=== PATIENT | female | born 1935 | race Caucasian/White ===

== ENCOUNTER 2016-08-18 17:33 | Inpatient (IN) | payer MEDICARE, OTHER ==
[~2016-08-18] VITALS: Ht 162.6 cm; Wt 54.1 kg
[~2016-08-18 17:33] MED LIST: CALC1TAB23 PO; LISI30TA5 PO; MULT-1065 PO; OMPR20CCR PO; SIMV10TA4 PO
[2016-08-18 17:38] VITALS: BP 162/73; PULSE 103; RESP 16; O2SAT 94
--- NOTE | 2016-08-18 18:00 | ED.REPORT ---
HPI-General Illness Date of Service Aug 18, 2016 ED Provider: Salazar Magdaleno MD 81 year old female with a history of hypertension on lisinopril, hyperlipidemia and ovarian cancer with chemotherapy today who presents to the ED due to increased SOB today. Her symptoms are worse with exertion. Pt denies pain with deep inspiration but has had a few sharp pains today. Pt recently had her Clonidine increased to twice daily. No history of DVT/PE. Nursing Notes Stated Complaint: CHEST PAIN, SHORT OF BREATH Chief Complaint: Respiratory Distress Nursing Notes Reviewed: Yes Allergies: Coded Allergies: No Known Allergies (Verified Allergy, Unknown, 04/02/15) Scheduled Calcium Carbonate/Vitamin D3 (Os-Jelani 500+D3 Caplet) 500 Mg-600 Tablet 1 EACH PO DAILY Lisinopril (Lisinopril) 30 Mg Tablet 15 MG PO DAILY Multivits-Min/Iron/FA/Lutein (Centrum Silver Women Tablet) 8 Mg Iron-400 Mcg- 300 Mcg Tablet 1 EACH PO DAILY Omeprazole (Prilosec) 20 Mg Capcr 20 MG PO DAILY Simvastatin (Simvastatin) 10 Mg Tablet 10 MG PO HS General Time Seen by MD: 17:59 Chief Complaint Breathing problem Hx Obtained From: Patient, Daughter Arrived By: Walk-in Sudden in Onset?: No Onset Occurred: 13 - 16 hours ago Symptom Duration: Since onset Location: : Chest Severity: Current: No pain currently Associated with: Reports: Chest pain, Shortness of breath, Denies: Fever Relieved by: Rest Recent Healthcare: Recent doctor visit Past Medical History Past Medical History Ovarian Cancer (currently on chemotherapy) Orthostatic HTN Reports: Diabetes mellitus, GERD, Hyperlipidemia, Hypertension, Denies: Congestive heart failure, Coronary artery disease Denies: Renal insufficiency Past Surgical History Vocal cord repair facial cyst removed Total hysterectomy Family History non-contributory Smoking History Never Smoker Social History Lives in mobile home on daughter's property Drug Use: Denies drug use Other Social History: Good social support Ambulatory Status Independent Review of Systems Full Review of Systems Constitutional: Denies: Chills, Fever Respiratory: Reports: Shortness of breath, Denies: Non-productive cough Cardiovascular: Reports: Chest pain, Dyspnea on exertion GI: Denies: Abdominal pain, Diarrhea, Vomiting Complete sys rev & neg: except as marked. Physical Exam Vital Signs Vital Signs Date Time Temp Pulse Resp B/P Pulse Ox O2 Delivery O2 Flow Rate FiO2 08/18/16 21:31 36.3 103 20 139/61 96 Nasal Cannula 2 08/18/16 18:05 94 20 155/59 91 Room Air 08/18/16 17:38 36.2 103 16 162/73 94 Room Air Initial VS: Reviewed Head / Eyes: Atraumatic, Normocephalic, PERRL ENT: Conjunctiva normal, No scleral icterus Neck: Full range of motion Skin: Warm, Dry, No cyanosis Neurologic: Alert, Oriented Psychiatric: Mood/affect normal, Behavior normal, Normal thought content General/Constitutional: Awake, Alert, Cooperative Mouth: Positive: Mucous membranes dry (slightly) Respiratory / Chest: Breath sounds NL, Breath sounds = bilat, No respiratory distress, No rales, No rhonchi, No wheezing Port present R anterior chest wall with clean dressing in place. No erythema, swelling or tenderness. Cardiovascular: Regular rhythm, Heart sounds NL, No gallop, No murmurs, No rubs , Cap refill not delayed, Peripheral circulation NL Heart Rate / Rhythm: Positive: Tachycardia Abdomen: Soft, Non-tender, No distention Lower Extremity / Pelvis / MS: Non-tender, Neurologic intact, Vascular intact, No edema Compression stocking in place Interpretation & Diagnostics Lab Results Interpretation Result Diagram: 08/18/165 08/18/16 1815 Test 08/18/16 18:15 08/18/16 19:22 08/18/16 19:40 White Blood Count 32.6th/mm3 (3.8-10.1) Red Blood Count 2.28mil/mm3 (3.90-5.20) Hemoglobin 8.0g/dL (12.0-15.6) Hematocrit 25.6% (35.0-46.0) Mean Corpuscular Volume 112.3fL (81-100) Mean Corpuscular Hemoglobin 35.1pg (27.0-35.0) Mean Corpuscular Hemoglobin Concent 31.3% (32.0-37.0) Red Cell Distribution Width 20.3% (12.3-15.4) Platelet Count 250bil/L (150-400) Neutrophils (%) (Auto) 96.5% (40-74) Lymphocytes (%) (Auto) 0.7% (14-46) Monocytes (%) (Auto) 2.1% (4-12) Eosinophils (%) (Auto) 0% (0-5) Basophils (%) (Auto) 0.1% (0-3) Sodium Level 139mEq/L (134-144) Potassium Level 4.2mEq/L (3.5-5.2) Chloride Level 103mEq/L (97-108) Carbon Dioxide Level 23mmol/L (18-29) Blood Urea Nitrogen 24mg/dL (8-27) Creatinine 0.86mg/dL (0.57-1.00) Estimat Glomerular Filtration Rate 90mL/min (>59) Glucose Level 225mg/dL (60-99) Calcium Level 8.6mg/dL (8.5-10.1) Magnesium Level 1.6mg/dL (1.6-2.6) Total Bilirubin 0.3mg/dL (0.0-1.2) Aspartate Amino Transf (AST/SGOT) 18U/L (0-50) Alanine Aminotransferase (ALT/SGPT) 11U/L (0-32) Alkaline Phosphatase 181U/L (25-165) Troponin T < 0.010ug/L (0.0-0.011) Total Protein 6.7g/dL (6.4-8.4) Albumin 3.7g/dL (3.4-5.0) Hold Aguayo Top Tube Received (Received) Prothrombin Time 11.4sec (8.1-12.5) Prothromb Time International Ratio 1.06ratio Hold Blue Top Tube Received (Received) Hold Urine Received (Received) General Lab Results Interp 1: Labs reviewed ECG Interpretation ECG Interpretation: No ST segment elevation or T wave inversions. No change from previous ECG 04/02/15. Time: 18:06 Interpreted by: ED physician Normal ECG Interpretation: Normal rate (98), Normal sinus rhythm, Normal axis, Normal intervals X-Ray Chest Interpretation Chest Xray Interpretation: IMPRESSION: Bibasilar opacities compatible with pneumonia versus atelectasis. Small bilateral pleural fluid collections. Dictated by: Luisa Rodríguez MD, PhD on 08/18/2016 at 18:55 View: Portable, 1 view Interpretation / Wet Read by: Interpret - Radiologist CT Chest Interpretation IMPRESSION: 1. No pulmonary embolus. 2. Moderate-sized right and small left pleural effusions. 3. Bibasilar compressive atelectasis. 4. Atherosclerosis including the coronary vasculature. Dictated by: Luisa Rodríguez MD, PhD on 08/18/2016 at 20:20 Study type: CT pulm angiogram Interpretation / Wet Read by: Interpret - Radiologist Re-Eval/Medical Decision Med Decision/Clinical Course 81 year old female with a history of hypertension on lisinopril, hyperlipidemia and ovarian cancer with chemotherapy today who presents to the ED due to increased SOB today. Her symptoms are worse with exertion. Pt denies pain with deep inspiration but has had a few sharp pains today. Pt recently had her Clonidine increased to twice daily. No history of DVT/PE. Laboratory studies notable as below: Leukocytosis 32.6 increased from previous of 17 Hct 25.6 which is dec from prior in 30's Platelets 250 Coags nl Glucose 225 Alk phos 181 CMP otherwise unremarkable Troponin negative CT angiography of the chest obtained as below: 1. No pulmonary embolus. 2. Moderate-sized right and small left pleural effusions. 3. Bibasilar compressive atelectasis. 4. Atherosclerosis including the coronary vasculature. Chest x-ray IMPRESSION: Bibasilar opacities compatible with pneumonia versus atelectasis. Small bilateral pleural fluid collections. Here in the emergency department the patient remained borderline tachycardic with a heart rate in the low 100s. She initially had an oxygen saturation 90% on room air with any exertion she dropped her oxygen sats into the mid 80s. At this time we have ruled out pulmonary embolism as a cause of her presentation today. She does have significant leukocytosis though this is in the setting of receiving steroids with her chemotherapy. She is anemic though not to the point where I would initiate blood transfusion at this moment. She remains quite dyspneic and is requiring 3 L of oxygen by nasal cannula to maintain sats in the mid 90s. At this time initial workup for acute coronary syndrome is negative. Given her ongoing significant symptoms however I feel that she requires admission for further workup and management. Patient was discussed with the admitting hospitalist and transferred in stable condition. I suspect that her pleural effusion may be contributing to her symptoms. She may require further workup including thoracentesis and pleural fluid analysis to determine the etiology of her effusion. Time of Eval: 20:51 Re-Evaluation/Progress Note: Pt has been getting steroids before chemo with the last dose this morning. Time of Eval: 21:12 Re-Evaluation/Progress Note: After the oxygen was removed, the patients O2 sat decreased to the high 80's. Oxygen improved after NC was re-administered. Mildly tachycardic. Discussed plan for admission. Pt understands and agrees with plan. All questions addressed. Consultation : Referral / Consult Name: Kermit Fletcher MD Consulted With: Hospitalist Call Returned at: 21:57 Shift Supervisor Melting: Will see patient, Agrees with eval, Agrees with plan, Accepts admit Counseled Regarding: Diagnosis, Lab results, Need for admission Discharge & Departure Primary Impression: Pleural effusion Additional Impressions: Hypoxia History of ovarian cancer Anemia Anemia type: unspecified type Qualified Code: D64.9 - Anemia, unspecified Leukocytosis Leukocytosis type: unspecified Qualified Code: D72.829 - Elevated white blood cell count, unspecified Shortness of breath Fatigue Fatigue type: unspecified Qualified Code: R53.83 - Other fatigue Patient on antineoplastic chemotherapy regimen Disposition: ADMITTED TO HOSPITAL Discharge Condition All VS Reviewed: Yes Referrals: Lisa Vargas PA-C (PCP) Alison Attestation Portions of this note were transcribed by Alisa Lafleur. I, (Dr. Magdaleno) personally performed the history, physical exam and medical decision-making; I reviewed and confirmed the accuracy of the information in the transcribed note. Signed by: Alisa Lafluer. Alison, 08/18/2016, [id number] copies to: Lisa Vargas PA-C, Beck O MD Aug 18, 2016 18:00 Alisa Lafleur Aug 18, 2016 18:47
[2016-08-18 18:05] VITALS: BP 155/59; PULSE 94; RESP 20; O2SAT 91
[2016-08-18] MEDS ORDERED: 0.9% Sodium Chloride 1,000 ML IV ONE (18:47)
[2016-08-18 18:49] LABS: BASOPHILS % (AUTO) 0.1 % (0-3); EOSINOPHILS % (AUTO) 0 % (0-5); MONOCYTES % (AUTO) 2.1 % (4-12); Mean Corpuscular Hemoglobin 35.1 pg (27.0-35.0); Mean Corpuscular Volume 112.3 fL (81-100); NEUTROPHILS % (AUTO) 96.5 % (40-74); Platelet Count 250 bil/L (150-400)
--- NOTE | 2016-08-18 18:57 | DRSVH ---
PROCEDURE: X-RAY CHEST ONE VIEW, PORTABLE ([id number]) INDICATIONS: CHEST PAIN TECHNIQUE: One view of the chest was acquired. COMPARISON: [facility], CR, XR CHEST 1VW (PORTABLE), 04/02/2015, 17:37. FINDINGS: Surgical changes and devices: Right chest wall Port-A-Cath. Lungs and pleura: Small bilateral pleural fluid collections are noted. Bibasilar opacities are note d which could represent compressive atelectasis versus pneumonia. Mediastinum: Mediastinal contours appear normal. Heart size is normal. Bones and chest wall: No suspicious bony lesions. Overlying soft tissues appear unremarkable. IMPRESSION: Bibasilar opacities compatible with pneumonia versus atelectasis. Small bilateral pleur al fluid collections. Dictated by: Luisa Rodríguez MD, PhD on 08/18/2016 at 18:55 Approved by: Luisa Rodríguez MD, PhD on 08/18/2016 at 18:56
[2016-08-18 19:20] LABS: TROPONIN T < 0.010 ug/L (0.0-0.011)
[2016-08-18 19:24] LABS: Magnesium 1.6 mg/dL (1.6-2.6)
[2016-08-18 19:49] LABS: INR 1.06 ratio
--- NOTE | 2016-08-18 20:26 | DRSVH ---
PROCEDURE: CT ANGIO CHEST PULMONARY EMBOLISM ([id number]) INDICATIONS: concern for PE, SOB TECHNIQUE: After the administration of intravenous contrast, 2 mm thick sections acquired from the pulmonary api andriy to the posterior costophrenic angles. 3-dimensional maximum intensity projection (MIP) coronal a nd sagittal reformats were then acquired through the thorax. For radiation dose reduction, the follo wing was used: automated exposure control, adjustment of mA and/or kV according to patient size. COMPARISON: None. FINDINGS: Image quality: Excellent. Pulmonary arteries: Pulmonary arteries are normal in size, and demonstrate no intraluminal filling d efects to suggest central pulmonary embolism. Lungs and pleura: Moderate-sized right and small left pleural effusions are noted. Compressive atel ectasis noted in the lungs bilaterally. No pneumothorax. Central and peripheral airways are patent. Mediastinum: Heart size is normal, without pericardial effusion. Atherosclerotic ossifications noted in the aorta, great vessels and the coronary vasculature. No mediastinal or hilar adenopathy. Thor acic aorta is normal in caliber and enhancement. Esophagus is normal in caliber, without hiatal charles ia. Bones and chest wall: Left chest wall Port-A-Cath is noted. No suspicious bony lesions. Ribs and th oracic spine appear intact throughout. No axillary or supraclavicular adenopathy. Abdomen: Visualized upper abdominal solid organs appear normal in the early arterial phase of enhanc ement. IMPRESSION: 1. No pulmonary embolus. 2. Moderate-sized right and small left pleural effusions. 3. Bibasilar compressive atelectasis. 4. Atherosclerosis including the coronary vasculature. Dictated by: Luisa Rodríguez MD, PhD on 08/18/2016 at 20:20 Approved by: Luisa Rodríguez MD, PhD on 08/18/2016 at 20:24
[2016-08-18 21:31] VITALS: BP 139/61; PULSE 103; RESP 20; O2SAT 96
[2016-08-18] MEDS ORDERED: LISI40TA PO (22:29)
[2016-08-18] MEDS ORDERED: OMEP20CA11 PO (22:30)
[2016-08-18] MEDS ORDERED: ONDA-54 PO (22:32)
[2016-08-18] MEDS ORDERED: Alum-Mag Hydrox-Simeth 30 mL Suspension PO PRN ×2 (22:35→23:45)
[2016-08-18 22:37] VITALS: BP 135/55; PULSE 102; RESP 20; O2SAT 94
[2016-08-18 23:07] VITALS: BP 133/73; PULSE 102; RESP 20; O2SAT 94
[2016-08-18] MEDS ORDERED: 0.9% Sodium Chloride 250 ML IV SCH (23:10)
[2016-08-18 23:29] VITALS: PULSE 102
--- NOTE | 2016-08-18 23:37 | PCM.HPMED ---
Subjective Date of Service Aug 18, 2016 Primary Provider: Admitting Physician: Kermit Fletcher MD Primary Care Physician: Lisa Vargas PA-C Attending Physician: Kermit Fletcher MD Admit Status: From the Emergency Department Chief Complaint: Chest pain and shortness breath History of Present Illness: 81 year Y/O F with a history of diabetes type II diet controlled, hypertension on lisinopril, hyperlipidemia on simvastatin and ovarian cancer with chemotherapy today who presents to the ED due to increased SOB, and dyspnea today. Associated symptoms include very mild cough productive of scant amount of mucus. Her symptoms for today are worse with exertion. Patient reported a few sharp pains in chest with onset today. Patient is currently receiving chemotherapy for ovarian cancer. She is currently on week one of her seventh cycle of Gemzar and carboplatin. Patient's daughter Von was present during interview and is patient's power of corporate associate attorney. She states her mother had last chemotherapy done today. Prior to that her last cycle ended August 04 and at that time had hemoglobin of 7.4 and was not transfused. Patient denies fever, chills, sweats, abdominal pain, back pain, nausea, vomiting, sore throat. Pt recently had her Clonidine increased to twice daily. Vital signs in ED on presentation: Temperature 36.2, pulse 103, blood pressure 162/73, respirations 16, pulse 94 on room air. Repeat vitals temperature 36.3, pulse 102, blood pressure 135/55, respirations 20, pulse ox 94 on 2 L nasal cannula. Hemogram: White blood cell count 32.6, hemoglobin 8.0, hematocrit 25.6, MCV 112.3, platelet count 250, neutrophils 96.5. Chemistry panel: Sodium 139, potassium 4.2, chloride 103, CO2 23, BUN 24, creatinine 0.86, glucose 225, alkaline phosphatase 181, troponin 0.[address] chest was significant for moderate size right and small sized left pleural effusions, no pulmonary embolus was seen, right basilar compressive atelectasis, atherosclerosis including the coronary vasculature. Chest x-ray was significant for bibasilar opacities compatible with pneumonia versus atelectasis and small bilateral pleural fluid collections. EKG was normal sinus with a rate of 98, no ST segment elevation or T-wave inversions no changes from previous ECG. Review of Systems: A comprehensive review of systems was conducted and found to be negative except what was mentioned in history of present illness Allergies Coded Allergies: No Known Allergies (Verified Allergy, Unknown, 04/02/15) Home Medications Lisinopril (Lisinopril) 80 mg daily Omeprazole (Prilosec) 20 Mg Capcr 20 MG PO DAILY Simvastatin (Simvastatin) 10 Mg Tablet 10 MG PO HS PMH Ovarian Cancer (currently on chemotherapy) Orthostatic HTN Reports: Diabetes mellitus, GERD, Hyperlipidemia, Hypertension, Denies: Congestive heart failure, Coronary artery disease Denies: Renal insufficiency Surgical History Vocal cord repair facial cyst removed Total hysterectomy Family History Noncontributory Social History Hx Alcohol Use: No Hx Substance Use: No Smoking Status: Never Smoker Living Arrangement: with Family Exam Vital Signs Vital Sign - Last Date Time Temp Pulse Resp B/P Pulse Ox O2 Delivery O2 Flow Rate FiO2 08/18/16 21:31 36.3 103 20 139/61 96 Nasal Cannula 2 Exam General: Patient appears stated age, alert and oriented 3, no acute distress at time of this exam resting comfortably in bed him a speaking in full sentences HEENT: NC/AT, eyes PERRLA/EOMI, neck supple, nontender no adenopathy no JVD no masses, throat no erythema no exudates Lungs: left lung Owens with crackles greater than right Heart: Regular rate and rhythm with no murmur Abdomen: Soft nontender bowel sounds normal no masses nondistended Genitourinary: No suprapubic pain Extremities: Lower extremity mild 1+ pitting edema bilaterally to the level of mid calf Neurologic: Grossly neurologically intact cranial nerves II through XII Skin: Warm dry Lab and Diagnostics Result Diagram: 08/18/16181408/18/161814 X-Rays, CTs and MRIs Chest Xray Interpretation: IMPRESSION: Bibasilar opacities compatible with pneumonia versus atelectasis. Small bilateral pleural fluid collections. Dictated by: Luisa Rodríguez MD, PhD on 08/18/2016 at 18:55 View: Portable, 1 view Interpretation / Wet Read by: Interpret - Radiologist CT Chest Interpretation IMPRESSION: 1. No pulmonary embolus. 2. Moderate-sized right and small left pleural effusions. 3. Bibasilar compressive atelectasis. 4. Atherosclerosis including the coronary vasculature. Dictated by: Luisa Rodríguez MD, PhD on 08/18/2016 at 20:20 Study type: CT pulm angiogram Interpretation / Wet Read by: Interpret - Radiologist 12-lead ECG ECG Interpretation: No ST segment elevation or T wave inversions. No change from previous ECG 04/02/15. Time: 18:06 Interpreted by: ED physician Normal ECG Interpretation: Normal rate (98), Normal sinus rhythm, Normal axis, Normal intervals Assessment & Plan 81 year Y/O F with a history of hypertension on lisinopril, hyperlipidemia and ovarian cancer with chemotherapy today who presents to the ED due to increased SOB today. Her symptoms are worse with exertion. He was admitted for acute respiratory failure and bilateral pleural effusions, and anemia with hemoglobin of 8. # Chest pain, present on admission, active - ED notes says Pt recently had her Clonidine increased to twice daily. Over patient's daughter who is in room during physical exam states clonidine was stopped. Recommend further clarification in the morning. - If clonidine was indeed stopped rebound hypertension is a risk factor for this medication - Patient describes mild cough productive of phlegm, denies fever chills sweats abdominal pain - EKG: Normal rate (98), Normal sinus rhythm, Normal axis, Normal intervals. No ST segment elevation or T wave inversions. No change from previous ECG - Troponin ED was 0.010 # Acute respiratory failure, present on admission, active - Physical exam significant for left lung field crackles - Patient was descending on room air with movement into the 80s and 90s. - Differential diagnosis includes acute pulmonary pneumonitis given chemotherapy today with Gemzar, viral upper respiratory infection, bilateral pleural effusions, anemia with hemoglobin of 8 - Chest x-ray Bibasilar opacities compatible with pneumonia versus atelectasis. Small bilateral pleural fluid collections. - We will hold off on ABG now - Continue supplemental oxygen as needed and slowly titrate off. Keep Sats greater than 93%. - Pro calcitonin ordered and pending, influenza ordered and pending, MRSA swab ordered and pending, - DuoNeb therapy ordered every 4 when necessary # Bilateral pleural effusions right greater than left, present on admission, active - As seen on CT: Moderate-sized right and small left pleural effusions. No pulmonary embolus. Bibasilar compressive atelectasis. Atherosclerosis including the coronary vasculature. - Chest x-ray: Bibasilar opacities compatible with pneumonia versus atelectasis. Small bilateral pleural fluid collections. - We will defer to the day hospitalist and radiologist to decide on therapeutic thoracentesis in the morning. # Anemia, chronicity unknown, present on admission - She has recent history of anemia since starting chemotherapy. Last chemotherapy cycle ended August 04 hemoglobin was 7.4 and was not transfused at that time. Patient started new cycle of chemotherapy today. - Possible causes include chemotherapy-induced, anemia of chronic inflammation, iron deficiency anemia, blood loss - Hemoglobin is 8.0 - Transfusion threshold is 8.0 - Type and crossmatch 3 units, give 1 unit now - anemia panel ordered and pending (ordered and drawn prior to blood transfusion ) - Stool guaiac ordered and are pending # Leukocytosis, chronicity unknown, present on admission, active -Wbc's 36.2, neutrophils 96.5 -Differential diagnosis includes reactive/inflammatory, infectious, cancer related, -Pro calcitonin # Hyperglycemia in any known 2diabetic -Glucose 225 -Hemoglobin A1c ordered and pending -We will start low-dose correctional scale insulin Chronic problems #Ovarian Cancer (currently on chemotherapy) -She last had chemotherapy on day of admission 08/18/2016 -Oncologist is Dr. Shahid Villalobos MD ([facility]) [facility] -Patient is on her 7th cycle (week 1) of Gemzar and carboplatin. Patient receives Gemzar on week one and week 2 of each 3 week cycle, and carboplatin once every 3 week cycle. #Orthostatic hypotension, resumed stable #Diabetes mellitus -Recently had metformin stopped and now is diet-controlled #GERD, -On Prilosec OTC daily #Hyperlipidemia, -Simvastatin 10 mg daily #Hypertension, -Lisinopril 80 mg once daily as of 08/18/2016 Standard bowel medications Fever and pain control with Tylenol 650 mg Disposition: Admitted to in patient service with expected length of stay greater than 2 days, secondary to severity of presenting symptoms, treatment plan, complexity of clinical work up, and risk of adverse events. CODE STATUS: Full code PCP: Lisa PETERSON [facility] Oncologist: Dr. Shahid Villalobos MD ([facility]) [facility] [phone] DVT PE prophylaxis: Subcutaneous heparin DPOA: patient's daughter Von phone number [phone] Attending Statement The patient was seen and examined together with Dr. Em on 08/18 and I agree with the history, exam and plan as outlined in the note above. Zackary Em DO Aug 18, 2016 22:37 Kermit Fletcher MD Aug 18, 2016 23:37
[2016-08-18] MEDS ORDERED: Polyethylene Glycol (PEG) 17 Gm Powder PO PRN (23:45)
[2016-08-18] MEDS: Ondansetron 2 mg/mL 2 mL Inj IVPUSH PRN (23:46)
[2016-08-19] VITALS (9 sets, daily range): BP systolic 120–180; BP diastolic 56–76; PULSE 90–114; RESP 18–22; O2SAT 92–96
[2016-08-19 00:54] LABS: Magnesium 1.6 mg/dL (1.6-2.6); Unsaturated Iron Binding 188 ug/dL
--- NOTE | 2016-08-19 01:13 | NUR ---
admit note/med rec Pt is admitted to room 3025 from ED around 23:00 for pleural effusions and hypoxia; accompanied by her daughter, Von. Pt is A&Ox4, slightly weak with intermittent SOB with exertion. able to walk from gurney to bed with SBA. denies pain or discomfort. SpO2 @88%-89% on RA when resting; sats in mid 90s on 2L O2. open area noted on sacrum. pt and daughter stated that she acquired this 2 years ago. Mepilex on; pressure ulcer protocol activated. Pt and daughter oriented to room and plan of care; they verbalized understanding. pt watched orientation video. hx of falls; bed alarm on for safety. Pt's daughter, Von reviewed pt's med list. med rec completed and took all meds home.
[2016-08-19] MEDS: Heparin 5,000 Unit/mL Inj SUBQ SCH ×3 (02:59→17:12)
--- NOTE | 2016-08-19 06:07 | NUR ---
blood transfusion/hypoxia 1 unit of PRBCs given per MD's order. Pt tolerated well w/o adverse effects. RA trial done after blood transfusion; pt desated to 88% on RA while asleep; no respiratory distress noted. Pt is back on 1L O2, sats in mid 90s.
[2016-08-19 07:58] LABS: BASOPHILS % (AUTO) 0.1 % (0-3); EOSINOPHILS % (AUTO) 0.1 % (0-5); MONOCYTES % (AUTO) 6.9 % (4-12); Mean Corpuscular Hemoglobin 34.4 pg (27.0-35.0); Mean Corpuscular Volume 105.4 fL (81-100); Platelet Count 242 bil/L (150-400)
[2016-08-19] MEDS ORDERED: Lisinopril 40 Tablet PO SCH (08:30)
[2016-08-19] MEDS: Pantoprazole 20 mg ER24 Tablet PO SCH (09:09)
--- NOTE | 2016-08-19 10:04 | NUR ---
Social Work: Initial Assessment Data: Pt is an 81 y/o female admitted for pleural effusion, hypoxia. Pt's PCP is Dr Vargas, pt's insurance is [employer] with [employer]. EMR reviewed. No readmit score listed. SLEEVE PRESSER OPERATOR met with pt at bedside, role explained. Pt states that she lives alone in a trailer on her daughter's property where there are no stairs and she uses no DME. Pt states she does not drive, has no hx of HH or SNF, not [facility] or VA benefits, and is not a caregiver. Pt states her daughter is her DPOA and that she is bringing a copy of it in to the hospital today. Pt is currently on O2, is not on O2 at baseline. SLEEVE PRESSER OPERATOR will continue to follow for D/C planning needs. Assessment: Pt who is independent at baseline. Plan: Pt will likely d/c home when medically stable, possible HH. SLEEVE PRESSER OPERATOR will continue to follow for D/C planning needs. CELE Aguilar Addendum: 08/19/16 at 1018 by NELLY VIDALES Amended: Links added.
[2016-08-19] MEDS: Ondansetron 2 mg/mL 2 mL Inj IVPUSH PRN ×2 (11:28→19:39)
--- NOTE | 2016-08-19 11:39 | NUR ---
Concerns: Zofran 8mg administered as nausea prevention per patient and family request d/t chemo treatment 08/18. Patient states she takes Zofran PO 8mg q8hrs x 2days after chemo treatments to avoid symptoms of nausea.
--- NOTE | 2016-08-19 13:56 | NUR ---
Wound Care Pressure ulcer protocol received. Pt seen at bedside. 81 year Y/O F with a history of diabetes type II diet controlled, hypertension on lisinopril, hyperlipidemia on simvastatin and ovarian cancer with chemotherapy today who presents to the ED due to increased SOB, and dyspnea today. No pressure related skin issues noted.
[2016-08-19] MEDS ORDERED: Sodium Chloride LOK Flush 10 mL Syringe IVFLUSH PRN ×2 (14:00)
[2016-08-19] MEDS ORDERED: HepLOK Flush 100 unit/mL 5 mL Inj IVFLUSH PRN (14:00)
[2016-08-19] MEDS: 0.9% Sodium Chloride 250 ML IV SCH (17:12)
--- NOTE | 2016-08-19 17:24 | NUR ---
O2 Saturation/HR: O2 sats decreasing to 86-89% on 1L oxygen via NC. Telemetry ST 110s-120s per molding technician. Patient complained of "not feeling well", "I think that I'm just tired". O2 increased to 2L NC. MD notified. Patient resting w/eyes closed. On reassessment, O2 sats remaining 94-96%, HR 100-110s. Patient stating she is "feeling better".
--- NOTE | 2016-08-19 18:41 | PCM.PNMED ---
Subjective Date of Service Aug 19, 2016 Subjective denies any new issues/complaints. Exam Vital Signs Vital Sign - Last Date Time Temp Pulse Resp B/P Pulse Ox O2 Delivery O2 Flow Rate FiO2 08/19/16 16:40 37.4 109 22 159/63 92 Nasal Cannula 2.00 Intake and Output 08/18/16 08/18/16 08/19/16 Cumulative From/Thru 15:00 23:00 07:00 08/18/16 17:38 - 08/19/16 04:38 Intake Total 1000 ml 421 ml 1421 ml Balance 1000 ml 421 ml 1421 ml IV Total 1000 ml 21 ml 1021 ml Packed Cells 400 ml 400 ml General: Alert, Oriented X3, Cooperative, No Acute Distress Eyes: Scleral Anicteric Nose: Mucous Membr Moist/[place] Mouth: Mucous Membr Moist/[place] Neck: Supple Chest & Lungs: Chest Wall Normal, Other (mild rhonchi at right base) Cardiovascular: Regular Rate/Rhythm Abdomen: Tender (mild tender at supra-pubic area), Non-distended, Normoactive bowel tones, Soft Extremities: Edema (1+ edema in LE bilat) Neurological: Grossly Neurologically Intact, Normal Speech IVs and Medications Medications Reviewed: Medications were reviewed in detail Lab and Diagnostics Result Diagram: 08/19/16 0720 08/18/16 1815 X-Rays, CTs and MRIs Chest Xray Interpretation: IMPRESSION: Bibasilar opacities compatible with pneumonia versus atelectasis. Small bilateral pleural fluid collections. Dictated by: Luisa Rodríguez MD, PhD on 08/18/2016 at 18:55 View: Portable, 1 view Interpretation / Wet Read by: Interpret - Radiologist CT Chest Interpretation IMPRESSION: 1. No pulmonary embolus. 2. Moderate-sized right and small left pleural effusions. 3. Bibasilar compressive atelectasis. 4. Atherosclerosis including the coronary vasculature. Dictated by: Luisa Rodríguez MD, PhD on 08/18/2016 at 20:20 Study type: CT pulm angiogram Interpretation / Wet Read by: Interpret - Radiologist 12-lead ECG ECG Interpretation: No ST segment elevation or T wave inversions. No change from previous ECG 04/02/15. Time: 18:06 Interpreted by: ED physician Normal ECG Interpretation: Normal rate (98), Normal sinus rhythm, Normal axis, Normal intervals Assessment & Plan 81 year Y/O F with a history of hypertension on lisinopril, hyperlipidemia and ovarian cancer with chemotherapy who presents to the ED due to increased SOB. Her symptoms are worse with exertion. # Acute hypoxic respiratory failure, present on admission, ongoing - Likely at least partially 2ndry to underlying pleural effusion - IR consult for U/S guided right thoracentesis (both diagnostic and therapeutic ) - c/w supportive care # Question underlying pneumonia. poa - ID consulted. will f/u w/ recs # Chest pain, present on admission, Resolved. - Likely 2ndryt to pulmonary issues noted above - check echo - f/u # Macrocytic Anemia, chronicity unknown, present on admission - no sign of active bleeding - h/h stable - f/u # Leukocytosis, chronicity unknown, present on admission, active - ? underlying infection as noted - f/u w/ ID recs # Hyperglycemia with prior history of Type2 diabetic - Recently had metformin stopped and now is diet-controlled - Hemoglobin A1c ordered and pending - c/w ISS # Ovarian Cancer (currently on chemotherapy) - She last had chemotherapy on day of admission 08/18/2016 - Oncologist is Dr. Key (Ann Villalobos MD [facility] - Patient is on her 7th cycle (week 1) of Gemzar and carboplatin. Patient receives Gemzar on week one and week 2 of each 3 week cycle, and carboplatin once every 3 week cycle. # Chronic Orthostatic hypotension, presumed stable # GERD, - On Prilosec OTC daily # Hyperlipidemia, - Simvastatin 10 mg daily # Hypertension, - Lisinopril 80 mg once daily as of 08/18/2016 Dispo: 2-3 days Time spent 35 min Jong Zheng Aug 19, 2016 18:41
--- NOTE | 2016-08-19 19:35 | NUR ---
assumed care Received report from Jyothi EDDY at 1812 and assumed care of pt. Pt denies any pain or unmet needs at this time, reports feeling comfortable. O2 sats 93% on 2Lo2 via continuous pulsox. Report to barrett castro RN at 1900. Care continues. Addendum: 08/19/16 at 1935 by ANA NEVILLE RN Bed alarm for safety. Call light in reach.
[2016-08-19] MEDS: Ceftaroline Inj 600 MG in Dextrose 5% 250 ML IV SCH (20:30)
--- NOTE | 2016-08-19 21:02 | CONS ---
[address] [address] CONSULTATION REPORT PATIENT: CATALINO LARIOS : 1935 MR#: [id number] ADMIT: 08/18/2016 JOB ID: [id number] DATE OF SERVICE: 08/19/2016 INFECTIOUS DISEASE CONSULTATION: I thank Dr. Zheng for this consult. REASON FOR CONSULTATION: Bacteremia in a cancer patient. HISTORY OF THE PRESENT ILLNESS: The patient is a delightful 81-year-old woman who came [facility] [place] because she had been diagnosed with ovarian cancer and was coming to live with her daughter on [place]. The patient's other relevant medical history is type 2 diabetes, hypertension, and hyperlipidemia, but obviously the overwhelming issue is the ovarian cancer diagnosed about two and half years ago. She has been receiving chemo and tells me she has had about 25 doses of chemo spread out over the last two and half years. Her tumor marker, CA-125, was elevated at over 500 at the start of this cycle of this series of chemotherapeutic regimens, but it has now dropped about 60, so she is pleased with that. Unfortunately, the patient yesterday (August 18) developed increasing shortness of breath and some very mild productive cough. She also noted she had she had some atypical chest pain. She is currently in her 7th cycle of the chemo gemcitabine and carboplatin as directed by a doctor from [facility]. The last chemo in fact was just given on the , one day before yesterday's admission. Between cycles of chemotherapy she receives Neulasta, which of course makes her white count difficult to interpret. The patient reports that even though she was short of breath yesterday and had a bit of a dry cough which led her to be admitted, she had absolutely no fevers, chills, or sweats. She really did not have any pleuritic or substernal chest pain to speak of though, just a few fleeting momentary pains in the chest. There was no associated nausea or vomiting, though today on her second in-hospital day she has developed a bit of nausea and some vomiting which is very unusual for her. She had no sore throat, no diarrhea, and no urinary symptoms. Since the patient has been admitted there has been some discussion as to whether not she may have an infection and it is for that reason that I have been consulted. She denies any ill contacts or exposures and states that she herself does not believe she has an infection, but rather she is concerned about the fluid that has been accumulating in her pleural spaces. She notes that she lost quite a bit of weight during the course of this chemotherapy regimen, but she has gained some of that back recently. PAST MEDICAL HISTORY: 1. Ovarian cancer times 2-1/2 years, currently on chemotherapy, with dropping but still elevated tumor marker. 2. Hypertension. 3. Hyperlipidemia. 4. 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 SOCIAL HISTORY: The patient smoked briefly about 60 years ago, but not since. She is a nondrinker and currently lives in a mobile home which belongs to her but is sitting on her daughter's property on [place]. FAMILY HISTORY: Negative for tuberculosis in her parents, siblings, and children. REVIEW OF SYSTEMS: Was done in its entirety. The patient states that she is not having any headache or any visual problem. She has got no neurologic symptoms and notes that everybody thinks she is having a stroke because she has this left facial paralysis but it has been there since the after the epidermoid tumor was resected. She has no sore throat. No sneezing or nasal discharge. She has no stiff neck. She states she has a very occasional dry cough but basically is just short of breath and that has been her main problem over the past 48 hours. She has no pleuritic chest pain or substernal chest pain at this time. She has had some nausea and vomiting during the day because she was off her usual schedule of post-chemo antiemetics due to her hospital admission. No diarrhea and no abdominal pain. No flank pain. She denies hematuria, urgency, or frequency. No swelling in the extremities. No claudication. No skin rash. Remainder of the review of systems is negative. PHYSICAL EXAMINATION: Reveals an afebrile woman. She has been afebrile since her admission yesterday, just over 24 hours ago. Temp 37.4, pulse 109, respiratory rate 22, blood pressure 159/63. She is saturating well on 2 L and looks fairly comfortable, though which she is holding a bucket in case she vomits. The patient is completely alert, oriented x3, and a very lucid historian. She has no trauma to the head. No temporal wasting. Her eyes are without conjunctivitis or scleral icterus. Her nose is normal. There is no eschar. Her oral cavity has somewhat dry mucous membranes, but no thrush or pharyngitis is noted. The neck is supple. The patient has a left facial palsy or droop which is quite impressive which is old. Her lungs are notable for decreased breath sounds and some dullness at the bases. I do not hear rales or rhonchi. Cardiac tones regular rate and rhythm. There is a port in the right upper chest which is entirely benign appearing. The patient's abdomen is soft and nontender. It is rather thin. No hepatosplenomegaly or ascites is appreciated. There is no suprapubic fullness. She does not have a Kinsey catheter. Examination of the extremities shows her legs are quite well developed and there is no cyanosis, clubbing, edema, or cellulitis seen. Peripheral pulses are intact and the patient has good muscle strength throughout. No evidence of neuropathy. Labs include white blood count 21,000, hematocrit 27, platelet count 242,000. LDH is 245 and I am not sure why we checked it. Procalcitonin 0.15 on two measurements, the 8th and 9th basically. Magnesium is 1.6. LFTs normal but an alk phos is 181. Her micro studies include one of four bottles growing a gram-positive organism which appears to be Staph. These cultures were done yesterday in the ED. Influenza screen is negative. MRSA screen is pending. A multiplex PCR respiratory panel is negative. IMAGING: Notable for a CT angiogram which showed no pulmonary embolism. There is a moderate right and small left pleural effusion with bilateral compressive atelectasis. The chest x-ray reveals bilateral opacities which are atelectasis versus pneumonia. IMPRESSION: When I initially saw the patient and interviewed her before carefully examining the laboratories I was persuaded that she almost certainly did not have an infection, as her history and physical are not consistent with much going on in the way of infection. Her white count is high, I suspect strictly on the basis of the Neulasta she has been receiving. I just now noticed as I was reviewing her laboratories and preparing to dictate, however, that a single positive blood is positive for Staph. It is fairly likely that this is a coag-negative Staph and will be of no clinical significance, but I think in the interest of being conservative in this chemo-receiving elderly woman with ovarian cancer we should repeat blood cultures and place her on empiric antibiotics overnight. RECOMMENDATIONS: 1. Repeat blood cultures x2 sets will be done and I have asked the nurse to obtain one set through the port and one set through the skin. 2. A procalcitonin will be repeated tomorrow morning. 3. Following the drawing of the blood cultures, will place the patient on ceftaroline 600 mg q.12 h. 4. I will be by and reevaluate this delightful patient tomorrow.
[2016-08-20] VITALS (9 sets, daily range): BP systolic 156–180; BP diastolic 57–82; PULSE 86–103; RESP 18–19; O2SAT 95–98
--- NOTE | 2016-08-20 00:09 | NUR ---
BP Pt BP: 176/76 and HR: 109 and T: 37.1, paged night hospitalist with information.
[2016-08-20] MEDS: Heparin 5,000 Unit/mL Inj SUBQ SCH ×4 (00:30→23:26)
--- NOTE | 2016-08-20 04:30 | NUR ---
BP Dr returned with orders for lisinopril, given with good results. 0130 BP coming down. Will continue to monitor.
[2016-08-20 07:10] LABS: Vitamin B12 >1999 pg/mL (211-946)
[2016-08-20 08:31] LABS: BASOPHILS % (AUTO) 0.1 % (0-3); EOSINOPHILS % (AUTO) 0.1 % (0-5); MONOCYTES % (AUTO) 3.4 % (4-12); Mean Corpuscular Hemoglobin 34.4 pg (27.0-35.0); Mean Corpuscular Volume 106.3 fL (81-100); NEUTROPHILS % (AUTO) 94.7 % (40-74); Platelet Count 229 bil/L (150-400)
[2016-08-20] MEDS: Ceftaroline Inj 600 MG in Dextrose 5% 250 ML IV SCH (08:50)
[2016-08-20] MEDS: Pantoprazole 20 mg ER24 Tablet PO SCH (08:51)
[2016-08-20] MEDS: Ondansetron 2 mg/mL 2 mL Inj IVPUSH PRN ×2 (08:51→16:39)
--- NOTE | 2016-08-20 09:07 | NUR ---
Off Unit: Patient transported to [facility] via wheelchair @ approx 0905. prosthetic technician notified. O2 @ 3L NC. Family present at time of transport. Heparin SQ held this am.
[2016-08-20 10:53] LABS: TOTAL PROTEIN,PLEURAL FLUID 2.6 g/dL
[2016-08-20 11:08] LABS: BFWBC 170 /mm3; MONOCYTES,BODY FLUID 47 %
[2016-08-20 11:09] LABS: OTHER CELLS,BODY FLUID 0
--- NOTE | 2016-08-20 11:11 | DRSVH ---
PROCEDURE: X-RAY CHEST ONE VIEW ([id number]) INDICATIONS: POST THORACENTESIS TECHNIQUE: One view of the chest was acquired. COMPARISON: [facility], CT, CT ANGIO CHEST PE, 08/18/2016, 19:44. [facility] , CR, XR CHEST 1VW (PORTABLE), 08/18/2016, 18:21. [facility], CR, XR CHEST 1VW (PORTABLE) , 04/02/2015, 17:37. FINDINGS: Surgical changes and devices: Stable position of right chest port. Lungs and pleura: No pneumothorax post right thoracentesis with residual effusion. Small bilateral pl eural effusions. There is diffuse increased pulmonary interstitial marking. Mediastinum: Mediastinal contours appear normal. Heart size is normal. Bones and chest wall: No suspicious bony lesions. Overlying soft tissues appear unremarkable. IMPRESSION: No pneumothorax post thoracentesis. Dictated by: Booker Will RRStalin Interpreted: Kobe Chavez MD on 08/20/2016 at 11:10 Transcribed by: VICTOR MANUEL on 08/20/2016 at 11:11 Approved by: Kobe Chavez M.D. on 08/20/2016 at 15:15
[2016-08-20] MEDS ORDERED: hydrALAZINE 20 mg/mL Inj IV PRN (11:25)
--- NOTE | 2016-08-20 11:51 | DRSVH ---
PROCEDURE: US GUIDED THORACENTESIS BY REFERRING PHYSICIAN ([id number]) INDICATIONS: Right pleural efusion TECHNIQUE: The indications, alternatives, benefits, risks, and complications of the procedure were explained to the patient. Written informed consent was obtained and placed in the chart. The chest was examined sonographically, and an appropriate site was chosen for thoracentesis. The skin was prepared and alberto ped in the usual sterile fashion, and 1% lidocaine was infiltrated from the skin down through the ple ural surface. A 19-gauge catheter-covered needle was then introduced into the pleural space, the cat heter was advanced and the needle was withdrawn, and thereafter pleural fluid was aspirated. The cat heter was then removed and a dressing was applied. COMPARISON: None. FINDINGS: Access site: Right hemithorax. Needle: One-Step centesis catheter with introducer needle. Fluid volume and description: 970 cc of clear pleural fluid. Fluid sent for diagnostic testing: Fluid sent for cytology, multiple chemistry panels and therapeuti c drainage. Medications: 1% lidocaine for local anaesthesia. Complications: None; post-procedural chest radiograph is pending to assess for pneumothorax. IMPRESSION: Successful ultrasound-guided thoracentesis. Dictated by: Booker Will [facility] Interpreted: Kobe Chavez MD on 08/20/2016 at 11:50 Transcribed by: VICTOR MANUEL on 08/20/2016 at 11:50 Approved by: Kobe Chavez M.D. on 08/20/2016 at 15:24
--- NOTE | 2016-08-20 15:32 | PROG NOTE ---
[address] [address] PROGRESS NOTE PATIENT: CATALINO LARIOS : 1935 MR#: [id number] ADMIT: 08/18/2016 JOB ID: [id number] DATE: 08/20/2016 INFECTIOUS DISEASE FOLLOWUP NOTE: REASON FOR FOLLOWUP: Fevers in an ovarian cancer patient receiving chemotherapy. INTERVAL HISTORY: When I initially evaluated the patient as a new consult yesterday evening, she had not had any fevers but subsequent to that, she has had two low to medium grade fevers. She did not notice either of these and denies any subjective fevers or chills, but she was told by the nurses about the fever spikes. The patient denies any significant headache. Her nausea and vomiting have ended, and she does not have any significant pulmonary complaint, though she is slightly short of breath. She has no cough. Her port in her right upper chest is not bothering her. She has no dysuria or diarrhea. LABORATORIES: Include a white count, which is slowly settling to 17,000, 95% segs. Her creatinine is 0.65. Her LFT were essentially normal with a slightly elevated alk phos of 181. The pleural fluid was tapped today, and she had 170 white cells, about half monocytes and half polys. The LDH and total protein both suggested this was a transudate. The cultures include one of four blood cultures from admission which is growing a coag-negative staph, which is likely a contaminant. MRSA screen negative. Respiratory viral PCR panel negative. The followup blood cultures from the 10th are negative so far but they are just a few hours old. The Gram stain of the pleural fluid is negative. PHYSICAL EXAMINATION: The patient was afebrile until 2100 last night when she spiked to 38.4. She then defervesced for hours and then at 5 a.m. this morning was 38.3. The rest of the day she has been afebrile. Mental status is clear. Oral cavity negative. The port in the right chest is without inflammation. Lungs reasonably clear bilaterally with some decreased breath sounds at the right base. Cardiac tones: Regular rate and rhythm without murmur. Abdomen is really completely benign, soft and nontender, without organomegaly or ascites. The skin without rash. IMPRESSION: It is difficult to clarify what the source of the patient's fevers overnight may have been. Her white count is high but declining, and I think this is probably due to Neulasta that she is receiving, along with her chemotherapy. The single positive blood culture is likely a contaminant, and we now have repeats drawn through the port and the skin that are negative so far. The procalcitonin done this morning is 0.19, which is exactly in keeping with the prior values from earlier days and would argue against a significant bacterial process. Yesterday, I switched the patient to ceftaroline as coverage for what could be a methicillin-resistant Staphylococcus aureus process, as we initially just had the gram-positive organism in blood cultures. At this point, I think we can do away with the ceftaroline but I think we probably need a bit of broad-spectrum coverage in this cancer patient with fever, who is not neutropenic, until we have some clarity on the situation. RECOMMENDATIONS: 1. Will discontinue the ceftaroline, as it is no longer needed now that we know more about the gram-positive organism in her blood. 2. We will add Zosyn as broad-spectrum coverage for this ovarian cancer patient with ongoing chemo. 3. Will continue to closely observe the followup blood cultures. 4. If the patient should have additional coag-negative staph positive blood cultures, and especially if they come from the port, we may need to add back coverage for the possibility of a port infection. 5. I will be out of town for the next three days but will be back on August 24. I can be reached at any time about this or any other patient.
[2016-08-20] MEDS: 0.9% Sodium Chloride 250 ML IV SCH (16:38)
--- NOTE | 2016-08-20 16:55 | PCM.PNMED ---
Subjective Date of Service Aug 20, 2016 Subjective denies any new issues/complaints. says breathing feels much better after thoracentesis earlier this am Exam Vital Signs Vital Sign - Last Date Time Temp Pulse Resp B/P Pulse Ox O2 Delivery O2 Flow Rate FiO2 08/20/16 14:02 36.7 97 18 156/57 98 Nasal Cannula 1.00 Intake and Output 08/19/16 08/19/16 08/20/16 Cumulative From/Thru 15:00 23:00 07:00 08/18/16 17:38 - 08/20/16 06:13 Intake Total 0 ml 910 ml 379 ml 2710 ml Output Total 275 ml 1100 ml 1375 ml Balance -275 ml -190 ml 379 ml 1335 ml Intake Oral 0 ml 786 ml 786 ml IV Total 124 ml 379 ml 1524 ml Packed Cells 400 ml Output Urine Total 275 ml 1100 ml 1375 ml # Voids 5 5 # Bowel Movements 1 1 Exam General: Alert, Oriented X3, Cooperative, No Acute Distress Eyes: Scleral Anicteric Nose: Mucous Membr Moist/[place] Mouth: Mucous Membr Moist/[place] Neck: Supple Chest & Lungs: Chest Wall Normal, CTA bilat Cardiovascular: Regular Rate/Rhythm Abdomen: Tender (mild tender at supra-pubic area), Non-distended, Normoactive bowel tones, Soft Extremities: Edema (1+ edema in LE bilat) Neurological: Grossly Neurologically Intact, Normal Speech IVs and Medications Medications Reviewed: Medications were reviewed in detail Lab and Diagnostics Result Diagram: 08/20/1681408/20/16814 X-Rays, CTs and MRIs Chest Xray Interpretation: IMPRESSION: Bibasilar opacities compatible with pneumonia versus atelectasis. Small bilateral pleural fluid collections. Dictated by: Luisa Rodríguez MD, PhD on 08/18/2016 at 18:55 View: Portable, 1 view Interpretation / Wet Read by: Interpret - Radiologist CT Chest Interpretation IMPRESSION: 1. No pulmonary embolus. 2. Moderate-sized right and small left pleural effusions. 3. Bibasilar compressive atelectasis. 4. Atherosclerosis including the coronary vasculature. Dictated by: Luisa Rodríguez MD, PhD on 08/18/2016 at 20:20 Study type: CT pulm angiogram Interpretation / Wet Read by: Interpret - Radiologist 12-lead ECG ECG Interpretation: No ST segment elevation or T wave inversions. No change from previous ECG 04/02/15. Time: 18:06 Interpreted by: ED physician Normal ECG Interpretation: Normal rate (98), Normal sinus rhythm, Normal axis, Normal intervals Assessment & Plan 81 year Y/O F with a history of hypertension on lisinopril, hyperlipidemia and ovarian cancer with chemotherapy who presents to the ED due to increased SOB. Her symptoms are worse with exertion. # Acute hypoxic respiratory failure, present on admission, improving - Likely at least partially 2ndry to underlying pleural effusion - post Ultrasound guided right thoracentesis on 08/20/16 - f/u pleural fluid analysis including culture and path - c/w supportive care # Question underlying pneumonia. poa - appreciate ID consult. will f/u w/ recs - c/w Zosyn started 08/20 - f/u pending cultures # Acute fever, not poa. - plan as noted above # Chest pain, present on admission, Resolved. - Likely 2ndryt to pulmonary issues noted above - check echo - f/u # Macrocytic Anemia, chronicity unknown, present on admission - no sign of active bleeding - h/h stable - f/u # Leukocytosis, chronicity unknown, present on admission, active - ? underlying infection as noted - f/u w/ ID recs # Hyperglycemia with prior history of Type2 diabetic - Recently had metformin stopped and now is diet-controlled - Hemoglobin A1c 5.3 - c/w ISS # Ovarian Cancer (currently on chemotherapy) - She last had chemotherapy on day of admission 08/18/2016 - Oncologist is Dr. Shahid Villalobos MD ([place]) [place] - Patient is on her 7th cycle (week 1) of Gemzar and carboplatin. Patient receives Gemzar on week one and week 2 of each 3 week cycle, and carboplatin once every 3 week cycle. # Chronic Orthostatic hypotension, presumed stable # GERD, - On Prilosec OTC daily # Hyperlipidemia, - Simvastatin 10 mg daily # Hypertension, - Lisinopril 80 mg once daily as of 08/18/2016 Dispo: 2-3 days Time spent 35 in Jong Zheng Aug 20, 2016 16:55
[2016-08-20] MEDS: Piperacillin-Tazo 3.375 Gm Inj 3.375 GM in Dextrose 5% Minibag Plus 50 ML IV SCH ×2 (17:56→23:27)
--- NOTE | 2016-08-20 18:33 | NUR ---
Respiratory: O2 sats 97-99% on O2 @ 3L NC after returning from Thoracentesis. O2 reduced to 2L. After reassessment, O2 sats maintaining at 97-99%. O2 reduced to 1L. On reassessment, O2 sats 95-97%. Patient denies SOB at rest and with exertion. Encouraging deep breathing/cough exercised and encourage increase in activity as per patient comfort level.
[2016-08-21] VITALS (7 sets, daily range): BP systolic 145–171; BP diastolic 73–90; PULSE 86–95; RESP 16–20; O2SAT 92–97
[2016-08-21] MEDS: Pantoprazole 20 mg ER24 Tablet PO SCH (06:33)
--- NOTE | 2016-08-21 06:43 | NUR ---
Breathing Denies SOB @ rest on 1L NC all shift. States breathing significantly improved from yesterday prior to thoracentesis. Currently resting without any complaints.
[2016-08-21] MEDS: Lisinopril 40 Tablet PO SCH (07:55)
[2016-08-21] MEDS: Piperacillin-Tazo 3.375 Gm Inj 3.375 GM in Dextrose 5% Minibag Plus 50 ML IV SCH ×2 (07:56→16:43)
[2016-08-21] MEDS: Heparin 5,000 Unit/mL Inj SUBQ SCH ×2 (07:56→16:44)
--- NOTE | 2016-08-21 11:18 | DRSVH ---
[facility] [address] [place] [address] Echocardiogram Report Name: CATALINO LARIOS Study Date: 08/21/2016 Height: 64 in Hospital Exam Location: [facility] Weight: 125 lb Gender: Female BSA: 1.6 m2 : 1935 Age: 81 yrs BP: 171/82 mm Hg Reason For Study: Chest pain Ordering Physician: HOSPITALIST [facility] Performed By: Osmel Castaneda Referring Physician: JUAN COLE Interpretation Summary 1) Mild concentric left ventricular hypertrophy with normal size, wall motion, and systolic function (EF 55-60%). 2) Grade 2 diastolic dysfunction present, consistent with elevated left sided filling pressures. 3) Normal right ventricular size and function. 4) Mildly calcific mitral valve with mildly increased inflow gradient (mean gradient 6mmHg with HR in the 90s). 5) Moderate left-sided pleural effusion. 6) Trivial pericardial effusion noted. 7) Significant hypertension present during the study (BP 171/82). 8) No prior Echo available for comparison. Procedure: A two-dimensional transthoracic echocardiogram with color flow and Doppler was performed. The study quality was technically good. There is no prior echocardiogram noted for this patient. The patient was in normal sinus rhythm during the exam. Left Ventricle: The left ventricle is normal in size. There is mild concentric left ventricular hypertrophy. The ejection fraction is estimated to be 60-65%. Left ventricular wall motion is normal. Assessment of diastolic parameters suggests a pseudonormalization pattern, consistent with elevated filling pressures. Right Ventricle: The right ventricle is normal in size, thickness and function. Atria: The left atrium is severely dilated. Right atrial size is normal. The interatrial septum is intact with no evidence for an atrial septal defect. Mitral Valve: The mitral valve leaflets are mildly calcified. There is mild mitral annular calcification. The mitral valve mean gradient is 6 mmHg. There is mild mitral regurgitation. Aortic Valve: The aortic valve is normal in structure and function. There is no aortic valve stenosis. There is trace aortic regurgitation. Tricuspid Valve: The tricuspid valve is normal. The right ventricular systolic pressure is estimated at 35 mmHg assuming a right atrial pressure of 3 mm Hg. There is mild tricuspid regurgitation. Pulmonic Valve: The pulmonic valve leaflets are thin and pliable; valve motion is normal. There is a trace or physiologic amount of pulmonic regurgitation. Great Vessels: The aortic root is normal size. The ascending aorta is at the upper limits of normal in size. The pulmonary artery is normal size. The IVC is of normal diameter and collapses greater than 50% with a sniff. This suggests a low right atrial pressure of 3 mm Hg. Pericardium/ Pleura There is a trivial pericardial effusion noted. There is a moderate left-sided pleural effusion. MMode/2D Measurements & Calculations LVIDd: 3.4 cm RA long axis LVOT diam LVIDs: 2.4 cm LA A2 area: 24.7 cm FS: 30.3 % LA A4 area: 21.5 cm RA area Ao root diam EPSS: 0.73 cm LA length (vol): 4.8 cm IVSd: 1.1 cm LA vol: 93.9 ml : 12.0 cm asc Aorta LVPWd: 1.2 cm LA vol index RA vol: 27.2 mlDiam: 3.5 cm RA : 17.0 mm2 IVC diam: 1.3 cm LV mckeon. diameter/BSA LV sys. diameter/BSA RVD1 (basal) TAPSE: 1.9 cm (cm/m^2): 2.1 (cm/m^2): 1.5 Doppler Measurements & Calculations Ao V2 max MV E max gerardo MV E/A: 0.75 TR max gerardo : 158.4 cm/sec : 120.4 cm/sec Med Peak E' Gerardo : 284.8 cm/sec Ao max P.0 mmHg MV A max gerardo TR max PG Ao mean P.2 mmHg : 159.7 cm/sec E/E' med: 30.9 : 32.4 mmHg LVOT Max Gerardo Lat Peak E' Gerardo PA V2 max : 105.6 cm/sec MVA(VTI): 2.2 cm2 : 97.5 cm/sec E/E' lat: 25.4 PA mean PG MARLEN(I,D): 2.1 cm E/e' average : 2.1 mmHg sev ratio: 0.63 MV V2 mean Ao V2 mean LV V1 max PG PA V2 mean : 116.7 cm/sec : 121.6 cm/sec : 69.0 cm/sec MV mean P.9 mmHg Ao V2 VTI: 34.1 cmLV V1 VTI PA pr(Accel) MV V2 VTI: 31.4 cm : 21.5 cm : 29.2 mmHg MV dec time: 0.19 sec MARLEN(V,D): 2.2 cm2 MARLEN indexed to BSA (cm^2/m^2): 1.3 Reading Physician:11:17 AM
--- NOTE | 2016-08-21 13:32 | NUR ---
O2/AMBULATION P- Patient has recent Hx of SOB, was on 1L NC overnight. I- Patient on RA now 02 sats mid 90's, able to ambulate to bathroom independently. E- Continue to monitor, safety on toileting, monitor pending labs. Addendum: 08/21/16 at 1615 by KEITH RENDON RN AMBULATION Patient now has ambulated 150ft in nunez on RA, no SOB, o2 SAT 92%. LABS-WBC 17.5, Second set blood culture pending NEURO- LOC X3, decreased hearing CVS- BP 160'S/70 PLUM-See above note GI-Patient eat 1/2 lunch, denies nausea -Voiding bathroom SKIN- Sacrum, no skin breakdown noted PAIN-Patient denies IV-TKO Port PLAN-d/c home 1-2 days pending blood cultures + home health.
[2016-08-21] MEDS: 0.9% Sodium Chloride 250 ML IV SCH (16:43)
--- NOTE | 2016-08-21 16:52 | PCM.PNMED ---
Subjective Date of Service Aug 21, 2016 Subjective denies any new issues/complaints. says breathing feels much better after thoracentesis earlier this am Exam Vital Signs Vital Sign - Last Date Time Temp Pulse Resp B/P Pulse Ox O2 Delivery O2 Flow Rate FiO2 08/21/16 12:33 36.7 90 16 162/90 97 Nasal Cannula 1.00 Intake and Output 08/20/16 08/20/16 08/21/16 Cumulative From/Thru 15:00 23:00 07:00 08/18/16 17:38 - 08/21/16 06:57 Intake Total 175 ml 417 ml 221 ml 3523 ml Output Total 350 ml 350 ml 2075 ml Balance -175 ml 417 ml -129 ml 1448 ml Intake Oral 175 ml 0 ml 961 ml IV Total 417 ml 221 ml 2162 ml Packed Cells 400 ml Output Urine Total 325 ml 350 ml 2050 ml Emesis 25 ml 25 ml # Voids 5 # Bowel Movements 1 Exam General: Alert, Oriented X3, Cooperative, No Acute Distress Eyes: Scleral Anicteric Nose: Mucous Membr Moist/[place] Mouth: Mucous Membr Moist/[place] Neck: Supple Chest & Lungs: Chest Wall Normal, CTA bilat Cardiovascular: Regular Rate/Rhythm Abdomen: Tender (mild tender at supra-pubic area), Non-distended, Normoactive bowel tones, Soft Extremities: Edema (1+ edema in LE bilat) Neurological: Grossly Neurologically Intact, Normal Speech IVs and Medications Medications Reviewed: Medications were reviewed in detail Lab and Diagnostics Result Diagram: 08/20/1681408/20/1615 X-Rays, CTs and MRIs Chest Xray Interpretation: IMPRESSION: Bibasilar opacities compatible with pneumonia versus atelectasis. Small bilateral pleural fluid collections. Dictated by: Luisa Rodríguez MD, PhD on 08/18/2016 at 18:55 View: Portable, 1 view Interpretation / Wet Read by: Interpret - Radiologist CT Chest Interpretation IMPRESSION: 1. No pulmonary embolus. 2. Moderate-sized right and small left pleural effusions. 3. Bibasilar compressive atelectasis. 4. Atherosclerosis including the coronary vasculature. Dictated by: Luisa Rodríguez MD, PhD on 08/18/2016 at 20:20 Study type: CT pulm angiogram Interpretation / Wet Read by: Interpret - Radiologist 12-lead ECG ECG Interpretation: No ST segment elevation or T wave inversions. No change from previous ECG 04/02/15. Time: 18:06 Interpreted by: ED physician Normal ECG Interpretation: Normal rate (98), Normal sinus rhythm, Normal axis, Normal intervals Assessment & Plan 81 year Y/O F with a history of hypertension on lisinopril, hyperlipidemia and ovarian cancer with chemotherapy who presents to the ED due to increased SOB. Her symptoms are worse with exertion. # Acute hypoxic respiratory failure, present on admission, improving - Likely at least partially 2ndry to underlying pleural effusion - post Ultrasound guided right thoracentesis on 08/20/16 - pleural fluid analysis suggests transudative. culture negative so far Pleural protein/serum protein ratio 0.38 Pleural fluid LDH/serum LDH ratio 0.48 - Echo showing intact EF with evidence of Grade 2 diastolic dysfunction - f/u pending path - will give dose of Lasix - c/w supportive care # Question underlying pneumonia. poa - appreciate ID consult. will f/u w/ recs - c/w Zosyn started 08/20 - f/u pending cultures # Acute fever on 08/20/16, not poa. - plan as noted above # Chest pain, present on admission, Resolved. - Likely 2ndryt to pulmonary issues noted above - Echo as noted above - f/u # Macrocytic Anemia, chronicity unknown, present on admission - no sign of active bleeding - h/h stable - f/u # Leukocytosis, chronicity unknown, present on admission, active - ? underlying infection as noted - f/u w/ ID recs # Hyperglycemia with prior history of Type2 diabetic - Recently had metformin stopped and now is diet-controlled - Hemoglobin A1c 5.3 - c/w ISS # Ovarian Cancer (currently on chemotherapy) - She last had chemotherapy on day of admission 08/18/2016 - Oncologist is Dr. Key (Ann Villalobos MD [place] - Patient is on her 7th cycle (week 1) of Gemzar and carboplatin. Patient receives Gemzar on week one and week 2 of each 3 week cycle, and carboplatin once every 3 week cycle. # Chronic Orthostatic hypotension, presumed stable # GERD, - On Prilosec OTC daily # Hyperlipidemia, - Simvastatin 10 mg daily # Hypertension, - Lisinopril 80 mg once daily as of 08/18/2016 Dispo: 1-2 days Jong Zheng Aug 21, 2016 16:52
[2016-08-21] MEDS ORDERED: Furosemide 10 mg/mL 2 mL Inj IVPUSH ONE (16:55)
--- NOTE | 2016-08-21 17:21 | NUR ---
Social Work: Readiness for Discharge D: Pt discussed in am rounds. Pt is not medically stable for discharge at this time, but will likely be ready in 1-2 days. Pt has been ambulating 150 feet. has signed F2F order if pt would like home health. COLLECTION MANAGER met with pt and daughter at bedside to discuss home health option. HH Choice list provided. Preference is for [facility] however family would like the evening to discuss if this service is necessary for the pt. A: Pt who lives at home with family, ambulating 150 feet with RN during admission. P: Anticipate pt to discharge home in 1-2 days; COLLECTION MANAGER to follow up with pt prior to d/c if she would like referral sent to [facility]. F2F signed and in folder. CELE Ridley
[2016-08-22] VITALS (14 sets, daily range): BP systolic 80–165; BP diastolic 39–79; PULSE 85–142; RESP 10–29; O2SAT 91–98
[2016-08-22] MEDS: Heparin 5,000 Unit/mL Inj SUBQ SCH ×3 (00:02→16:18)
[2016-08-22] MEDS: Piperacillin-Tazo 3.375 Gm Inj 3.375 GM in Dextrose 5% Minibag Plus 50 ML IV SCH ×3 (00:03→16:18)
[2016-08-22 04:39] LABS: BASOPHILS % (AUTO) 0.3 % (0-3); EOSINOPHILS % (AUTO) 3.1 % (0-5); MONOCYTES % (AUTO) 1.9 % (4-12); Mean Corpuscular Hemoglobin 33.3 pg (27.0-35.0); Mean Corpuscular Volume 107.8 fL (81-100); NEUTROPHILS % (AUTO) 83.5 % (40-74); Platelet Count 200 bil/L (150-400)
--- NOTE | 2016-08-22 05:03 | NUR ---
HTN/Swallowing Pt had an elevated BP of 165/79. Denies chest pain, sob, feeling nauseated or abd discomfort. MD was notified and ordered amlodipine one time. BP was then normalize to 130's SBP. Blood draw done on pt's portacath and was sent to lab. Noticed pt is having difficulty with swallowing thin fluids. MD was notified and no further orders yet. Hourly rounding done, Call light within reach and pt has slept most of the night. Addendum: 08/22/16 at 0549 by SANG HA RN MD has ordered swallow eval. Will continue to follow up.
[2016-08-22] MEDS ORDERED: Diltiazem 5 mg/mL 5 mL Inj IVPUSH ONE (06:55)
--- NOTE | 2016-08-22 07:20 | NUR ---
New A-Fib 0630 Monitor delia called for new onset of A-fib running 140's-150's and asymptomatic. was notified and ordered Cardizem. Passed on to NUNU Conley for f/u.
[2016-08-22] MEDS ORDERED: 0.9% Sodium Chloride 500 ML ONE (07:29)
[2016-08-22] MEDS: Lisinopril 40 Tablet PO SCH ×2 (08:30→10:50)
[2016-08-22] MEDS ORDERED: 0.9% Sodium Chloride 500 ML IV ONE (08:55)
[2016-08-22] MEDS: Pantoprazole 20 mg ER24 Tablet PO SCH (09:03)
[2016-08-22] MEDS: 0.9% Sodium Chloride 250 ML IV SCH (09:11)
--- NOTE | 2016-08-22 11:00 | NUR ---
Evaluation completed. Please go to "Notes" then click on "Assessments and Notes" (bottom left corner of screen). Then select appropriate discipline tab on top of screen. Rec a modified barium swallow study to be completed while in the hospital.
--- NOTE | 2016-08-22 14:02 | NUR ---
HEART RATE/BP P- At 0630 orthopaedic technologist reports patient in A-fib HR 130-40. Patient denies chest pain is asymptomatic. I- MD made aware and order for 10mg IVP Diltazem ordered, given at 0720. E- Patient's heart rate 0735 is 80, but BP 72/49. MD made aware and 500ml bolus on NS ordered and given. Patient's BP within on hour 0930 was 140/70. At 0856 patient converted to SR 90's and has remained in SR. BP at one point up to 170/90 and 80 mg Lisinopril given that was withheld at 0800 due to low BP. Patient's last three BP's 140's/60's. Will continue to monitor via MP 30 and orthopaedic technologist.
--- NOTE | 2016-08-22 16:10 | PCM.PNMED ---
Subjective Date of Service Aug 22, 2016 Subjective denies any new issues/complaints. feeling a little anxious after told by nursing this am that she was having a-fib RVR although she says she was asymptomatic at the time. Exam Vital Signs Vital Sign - Last Date Time Temp Pulse Resp B/P Pulse Ox O2 Delivery O2 Flow Rate FiO2 08/22/16 13:06 36.7 92 20 148/65 96 Room Air 08/21/16 12:33 1.00 Intake and Output 08/21/16 08/21/16 08/22/16 Cumulative From/Thru 15:00 23:00 07:00 08/18/16 17:38 - 08/22/16 05:58 Intake Total 620 ml 367 ml 4510 ml Output Total 300 ml 300 ml 2675 ml Balance 320 ml 67 ml 1835 ml Intake Oral 620 ml 200 ml 1781 ml IV Total 167 ml 2329 ml Packed Cells 400 ml Output Urine Total 300 ml 300 ml 2650 ml Emesis 25 ml # Voids 5 # Bowel Movements 1 Exam was noted to be in A-fib w/ RVR this am. Received a dose fo IV Dilt by night team and this morning she was noted to be still tachycardic and hypotensive. BP and HR both improved after a bolus NS 250cc x 2. She is now back in Sinus rhythm. General: Alert, Oriented X3, Cooperative, No Acute Distress Eyes: Scleral Anicteric Nose: Mucous Membr Moist/[place] Mouth: Mucous Membr Moist/[place] Neck: Supple Chest & Lungs: Chest Wall Normal, CTA bilat Cardiovascular: Regular Rate/Rhythm Abdomen: Tender (mild tender at supra-pubic area), Non-distended, Normoactive bowel tones, Soft Extremities: Edema (1+ edema in LE bilat) Neurological: Grossly Neurologically Intact, Normal Speech IVs and Medications Medications Reviewed: Medications were reviewed in detail Lab and Diagnostics Result Diagram: 08/22/16 0840 08/22/16 0432 X-Rays, CTs and MRIs Chest Xray Interpretation: IMPRESSION: Bibasilar opacities compatible with pneumonia versus atelectasis. Small bilateral pleural fluid collections. Dictated by: Luisa Rodríguez MD, PhD on 08/18/2016 at 18:55 View: Portable, 1 view Interpretation / Wet Read by: Interpret - Radiologist CT Chest Interpretation IMPRESSION: 1. No pulmonary embolus. 2. Moderate-sized right and small left pleural effusions. 3. Bibasilar compressive atelectasis. 4. Atherosclerosis including the coronary vasculature. Dictated by: Luisa Rodríguez MD, PhD on 08/18/2016 at 20:20 Study type: CT pulm angiogram Interpretation / Wet Read by: Interpret - Radiologist 12-lead ECG ECG Interpretation: No ST segment elevation or T wave inversions. No change from previous ECG 04/02/15. Time: 18:06 Interpreted by: ED physician Normal ECG Interpretation: Normal rate (98), Normal sinus rhythm, Normal axis, Normal intervals Assessment & Plan 81 year Y/O F with a history of hypertension on lisinopril, hyperlipidemia and ovarian cancer with chemotherapy who presents to the ED due to increased SOB. Her symptoms are worse with exertion. # Acute hypoxic respiratory failure, present on admission, improving - Likely at least partially 2ndry to underlying pleural effusion - post Ultrasound guided right thoracentesis on 08/20/16 - pleural fluid analysis suggests transudative. culture negative so far Pleural protein/serum protein ratio 0.38 Pleural fluid LDH/serum LDH ratio 0.48 - Echo showing intact EF with evidence of Grade 2 diastolic dysfunction - f/u pending path - c/w supportive care # Acute Afib with RVR this am now back to sinus rhythm. - ? if afib/RVR 2ndry to dehydration after Lasix on 08/21 vs other etiology - continue to monitor on Tele one more night # Question underlying pneumonia. poa - appreciate ID consult. will f/u w/ recs - c/w Zosyn started 08/20 - f/u pending cultures # one positive blood culture from admission with Coag Neg staph. ? if contamination. - c/w Abx as noted - f/u repeat cultures # Acute fever on 08/20/16, not poa. - plan as noted above # Chest pain, present on admission, Resolved. - Likely 2ndryt to pulmonary issues noted above - Echo as noted above - f/u # Macrocytic Anemia, chronicity unknown, present on admission - no sign of active bleeding - h/h stable - f/u # Leukocytosis, chronicity unknown, present on admission. Resolved. - ? underlying infection as noted - f/u w/ ID recs # Hyperglycemia with prior history of Type2 diabetic - Recently had metformin stopped and now is diet-controlled - Hemoglobin A1c 5.3 - c/w ISS # Ovarian Cancer (currently on chemotherapy) - She last had chemotherapy on day of admission 08/18/2016 - Oncologist is Dr. Shahid Villalobos MD ([place] - Patient is on her 7th cycle (week 1) of Gemzar and carboplatin. Patient receives Gemzar on week one and week 2 of each 3 week cycle, and carboplatin once every 3 week cycle. # Chronic Orthostatic hypotension, presumed stable # GERD, - On Prilosec OTC daily # Hyperlipidemia, - Simvastatin 10 mg daily # Hypertension, - Lisinopril 80 mg once daily as of 08/18/2016 Dispo: likely home tomorrow Time spent 40 min Jong Zheng Aug 22, 2016 16:10
[2016-08-23 00:47] VITALS: BP 180/72; PULSE 86; RESP 16; O2SAT 96
[2016-08-23] MEDS: Piperacillin-Tazo 3.375 Gm Inj 3.375 GM in Dextrose 5% Minibag Plus 50 ML IV SCH ×2 (00:49→08:13)
[2016-08-23] MEDS: Heparin 5,000 Unit/mL Inj SUBQ SCH ×2 (00:50→08:13)
[2016-08-23 04:51] VITALS: BP 176/91; PULSE 92; RESP 18; O2SAT 95
[2016-08-23 05:05] LABS: Mean Corpuscular Hemoglobin 33.6 pg (27.0-35.0); Mean Corpuscular Volume 107.7 fL (81-100)
[2016-08-23 05:39] LABS: Magnesium 1.8 mg/dL (1.6-2.6)
[2016-08-23] MEDS: Pantoprazole 20 mg ER24 Tablet PO SCH (06:36)
--- NOTE | 2016-08-23 06:41 | NUR ---
HTN Pt had a couple of episodes of elevated bp. 170's SBP and going down on most frequent 140's sbp. Pt denies chest pain, sob, n/v or abd discomfort. Pt has been afebrile overnight. HS meds administered as scheduled. Hourly rounding done, pt uses call light appropriately and within reach. Pt has slept most of the night.
[2016-08-23] MEDS: Lisinopril 40 Tablet PO SCH (08:12)
[2016-08-23 08:18] VITALS: BP 185/76; PULSE 94; RESP 20; O2SAT 97
[2016-08-23 11:50] VITALS: BP 164/85; PULSE 95; RESP 18; O2SAT 98
--- NOTE | 2016-08-23 12:17 | PCM.DIMED ---
Discharge Instructions Date of Service Aug 23, 2016 Dates of Hospitalization Aug 18, 2016 at 22:11 Discharge Diagnosis Discharge Diagnosis # Acute hypoxic respiratory failure, present on admission, resolved - Likely at least partially due to underlying pleural effusion - post Ultrasound guided right thoracentesis on 08/20/16 - pleural fluid analysis suggests transudative. culture negative so far. cytology pending and needs to be followed up as outpatient Pleural protein/serum protein ratio 0.38 Pleural fluid LDH/serum LDH ratio 0.48 # Grade 2 diastolic dysfunction based on echocardiogram # Acute atrial fibrillation with rapid ventricular response now back to sinus rhythm. # Acute leukocytosis and isolated fever (08/20/16) probably due to Neulasta and recent chemotherapy. Resolved # Single positive blood culture (Coag Negative Staph) is likely a contaminant # Chest pain, present on admission, Resolved. - Likely due to pulmonary issues noted above # Macrocytic Anemia, chronicity unknown, present on admission. stable # Hyperglycemia with prior history of Type2 diabetes - Hemoglobin A1c 5.3 # Ovarian Cancer (currently on chemotherapy) # Chronic Orthostatic hypotension, stable # GERD # Hyperlipidemia, # Hypertension Medication Instructions Resume home medications as before Diet Low fat, Low Sodium, Heart Healthy, Diabetic Activity No restrictions Call your provider Fever or Chills, Shortness of breath, Bleeding, Chest pain, Excessive diarrhea Patient Instructions Seek immediate medical attention if any new or worsening signs or symptoms occur. Follow-up plan 1. Followup with primary care provider in 3-7 days 2. Followup with your oncologist on Tuesday as previously scheduled. Follow-up Provider: Lisa Vargas PA-C, [place] Aug 23, 2016 12:17
--- NOTE | 2016-08-23 12:27 | NUR ---
Social Work Discharge: SW acknowledged order for discharge. SW met with patient at bedside to discuss discharge plan. Patient resides home with family and daughter Von, . Plan is home with family and HHC services via [facility]. SW provided access to [facility] and faxed face to face to [phone]. SW contacted and left voice mail message for patient daughter regarding above discharge arrangements. Patient states daughter to provide transport home upon discharge. SW to follow. PLAN: Home with family support and HHC via [facility]. Access provided and face to face given. Transport via daughter at discharge. No anticipated discharge needs identified at this time. SW to follow. Jeanne OAKLEY
[2016-08-23 12:51] VITALS: PULSE 97
[2016-08-23] MEDS: 0.9% Sodium Chloride 250 ML IV SCH (13:57)
--- NOTE | 2016-08-23 14:29 | NUR ---
Discharge Reviewed d/c instructions including care notes with pt and daughter in room, pt signed and given originals, copies to chart. IV d/c intact, tele removed. VS stable at time of d/c. All belongings packed by pt and daughter and will be taken with them. Daughter to go to medical records then will come back to room to retrieve pt and drive her home. Care continues Addendum: 08/23/16 at 1500 by JHONNY BECK RN pt taken off unit via WC with all belongings, daughter to drive home
--- NOTE | 2016-08-23 15:12 | PCM.DC.MED ---
Discharge Summary Date of Service Aug 23, 2016 Dates of Hospitalization Date of Hospital Admission Aug 18, 2016 at 22:11 Date of Discharge: Aug 23, 2016 Providers: Admitting Physician: Kermit Fletcher MD Primary Care Physician: Lisa Vargas PA-C Attending Physician: Kermit Fletcher MD Diagnosis at Time of Discharge Diagnosis at Time of Discharge # Acute hypoxic respiratory failure, present on admission, resolved - Likely at least partially due to underlying pleural effusion - post Ultrasound guided right thoracentesis on 08/20/16 - pleural fluid analysis suggests transudative. culture negative so far. cytology pending and needs to be followed up as outpatient Pleural protein/serum protein ratio 0.38 Pleural fluid LDH/serum LDH ratio 0.48 # Grade 2 diastolic dysfunction based on echocardiogram # Acute atrial fibrillation with rapid ventricular response now back to sinus rhythm. # Acute leukocytosis and isolated fever (08/20/16) probably due to Neulasta and recent chemotherapy. Resolved # Single positive blood culture (Coag Negative Staph) is likely a contaminant # Chest pain, present on admission, Resolved. - Likely due to pulmonary issues noted above # Macrocytic Anemia, chronicity unknown, present on admission. stable # Hyperglycemia with prior history of Type2 diabetes - Hemoglobin A1c 5.3 # Ovarian Cancer (currently on chemotherapy) # Chronic Orthostatic hypotension, stable # GERD # Hyperlipidemia, # Hypertension Consultations 1. ID Procedures XRay, CTs & MRIs Date of Service: 08/18/16 1748 PROCEDURE: X-RAY CHEST ONE VIEW, PORTABLE ([id number]) IMPRESSION: Bibasilar opacities compatible with pneumonia versus atelectasis. Small bilateral pleural fluid collections. Dictated by: Luisa Rodríguez MD, PhD on 08/18/2016 at 18:55 Approved by: Luisa Rodríguez MD, PhD on 08/18/2016 at 18:56 Date of Service: 08/18/16 4777 PROCEDURE: CT ANGIO CHEST PULMONARY EMBOLISM ([id number]) IMPRESSION: 1. No pulmonary embolus. 2. Moderate-sized right and small left pleural effusions. 3. Bibasilar compressive atelectasis. 4. Atherosclerosis including the coronary vasculature. Dictated by: Luisa Rodríguez MD, PhD on 08/18/2016 at 20:20 Approved by: Luisa Rodríguez MD, PhD on 08/18/2016 at 20:24 ECG 12 Lead ECG Interpretation: No ST segment elevation or T wave inversions. No change from previous ECG 04/02/15. Time: 18:06 Interpreted by: ED physician Normal ECG Interpretation: Normal rate (98), Normal sinus rhythm, Normal axis, Normal intervals Cardiac Echo Impression Date of Service: 08/21/16 1653 Echocardiogram Report Interpretation Summary 1) Mild concentric left ventricular hypertrophy with normal size, wall motion, and systolic function (EF 55-60%). 2) Grade 2 diastolic dysfunction present, consistent with elevated left sided filling pressures. 3) Normal right ventricular size and function. 4) Mildly calcific mitral valve with mildly increased inflow gradient (mean gradient 6mmHg with HR in the 90s). 5) Moderate left-sided pleural effusion. 6) Trivial pericardial effusion noted. 7) Significant hypertension present during the study (BP 171/82). 8) No prior Echo available for comparison. Reading Physician:11:17 AM Invasive Procedures Date of Service: 08/20/16 0800 PROCEDURE: US GUIDED THORACENTESIS BY REFERRING PHYSICIAN ([id number]) FINDINGS: Access site: Right hemithorax. Needle: One-Step centesis catheter with introducer needle. Fluid volume and description: 970 cc of clear pleural fluid. Fluid sent for diagnostic testing: Fluid sent for cytology, multiple chemistry panels and therapeutic drainage. Medications: 1% lidocaine for local anaesthesia. Complications: None; post-procedural chest radiograph is pending to assess for pneumothorax. IMPRESSION: Successful ultrasound-guided thoracentesis. Dictated by: Booker Will RRA Interpreted: Kobe Chavez MD on 08/20/2016 at 11:50 Transcribed by: VICTOR MANUEL on 08/20/2016 at 11:50 Approved by: Kobe Chavez M.D. on 08/20/2016 at 15:24 Brief History 81 year Y/O F with a history of hypertension on lisinopril, hyperlipidemia and ovarian cancer with chemotherapy who presents to the ED due to increased SOB. Her symptoms are worse with exertion. Hospital Course # Acute hypoxic respiratory failure, present on admission, Resolved - Likely at least partially 2ndry to underlying pleural effusion - post Ultrasound guided right thoracentesis on 08/20/16 - pleural fluid analysis suggests transudative. 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 if afib/RVR 2ndry to dehydration after Lasix on 08/21 vs other etiology - initially became hypotensive with one dose of IV Dilt but the BP and HR both improved after 500cc NS bolus and converted back to sinus rhythm # Question underlying pneumonia. poa - treated with Zosyn 08/20 - 08/23 - clinically no sign of pneumonia and so Abx stopped on day of d/c # one positive blood culture from admission with Coag Neg staph likely contamination. # Acute isolated episode of fever on 08/20/16, not poa. - unclear exact source but further cultures negative and negative procalcitonin. # Chest pain, present on admission, Resolved. - Likely 2ndryt to pulmonary issues noted above - Echo as noted above # Macrocytic Anemia, chronicity unknown, present on admission - no sign of active bleeding - h/h stable # Leukocytosis, chronicity unknown, present on admission. Resolved. # Hyperglycemia with prior history of Type2 diabetic - Recently had metformin stopped and now is diet-controlled - Hemoglobin A1c 5.3 # Ovarian Cancer (currently on chemotherapy) - She last had chemotherapy on day of admission 08/18/2016 - Oncologist is Dr. Shahid Villalobos MD ([place]) [facility], [place], operated by [facility] - Patient is on her 7th cycle (week 1) of Gemzar and carboplatin. Patient receives Gemzar on week one and week 2 of each 3 week cycle, and carboplatin once every 3 week cycle. # Chronic Orthostatic hypotension, presumed stable # GERD, - On Prilosec OTC daily # Hyperlipidemia, - Simvastatin 10 mg daily # Hypertension, - Lisinopril 80 mg once daily by day of d/c lungs CTA bilat. patient speaking in full sentences without difficulty Exam Vital Signs (Last) Date Time Temp Pulse Resp B/P Pulse Ox O2 Delivery O2 Flow Rate FiO2 08/23/16 12:51 97 08/23/16 11:50 36.8 18 164/85 98 Room Air 08/21/16 12:33 1.00 Test 08/18/16 18:15 08/18/16 19:22 08/18/16 19:40 08/18/16 23:30 Total Bilirubin 0.3mg/dL (0.0-1.2) Aspartate Amino Transf (AST/SGOT) 18U/L (0-50) Alanine Aminotransferase (ALT/SGPT) 11U/L (0-32) Alkaline Phosphatase 181U/L (25-165) Troponin T < 0.010ug/L (0.0-0.011) Total Protein 6.7g/dL (6.4-8.4) Hold [place] Top Tube Received (Received) Prothrombin Time 11.4sec (8.1-12.5) Prothromb Time International Ratio 1.06ratio Hold Blue Top Tube Received (Received) Hold Urine Received (Received) Reticulocyte Count,Calculated 6.3% (0.6-2.6) Hemoglobin A1c 5.3% (4.8-5.6) Iron Level 61ug/dL (35-150) Total Iron Binding Capacity 249ug/dL (250-450) Percent Iron Saturation 24%sat (15-50) Unsaturated Iron Binding 188ug/dL Ferritin 1445ng/mL (13-150) Albumin 3.4g/dL (3.4-5.0) Vitamin B12 Level >1999pg/mL (211-946) Folate 8.6ng/mL (>3.0) Test 08/19/16 05:55 08/19/16 15:10 08/20/16 09:30 08/21/16 06:00 Lactate Dehydrogenase 245U/L (100-190) Protein C Antigen 72% (60-150) Body Fluid Source Pleural fluid Body Fluid Color Yellow (Clear) Body Fluid Appearance Clear Body Fluid WBC 170/mm3 Body Fluid RBC 140/mm3 Body Fluid Polynuclear WBCs 53% Body Fluid Lymphocytes 0% Body Fluid Monocytes 47% Body Fluid Eosinophils 0% Body Fluid Basophils 0% Body Fluid Lactate Dehydrogenase 119U/L Body Fluid Comment Pleural Fluid Total Protein 2.6g/dL Pleural Fluid Glucose 123mg/dL Procalcitonin 0.15ng/mL (0.00-0.08) Test 08/22/16 04:32 08/23/16 04:30 Neutrophils (%) (Auto) 83.5% (40-74) Lymphocytes (%) (Auto) 10.9% (14-46) Monocytes (%) (Auto) 1.9% (4-12) Eosinophils (%) (Auto) 3.1% (0-5) Basophils (%) (Auto) 0.3% (0-3) Prealbumin 13mg/dL (20-40) White Blood Count 5.2th/mm3 (3.8-10.1) Red Blood Count 2.47mil/mm3 (3.90-5.20) Hemoglobin 8.3g/dL (12.0-15.6) Hematocrit 26.6% (35.0-46.0) Mean Corpuscular Volume 107.7fL (81-100) Mean Corpuscular Hemoglobin 33.6pg (27.0-35.0) Mean Corpuscular Hemoglobin Concent 31.2% (32.0-37.0) Red Cell Distribution Width 19.1% (12.3-15.4) Platelet Count 203bil/L (150-400) Sodium Level 143mEq/L (134-144) Potassium Level 4.0mEq/L (3.5-5.2) Chloride Level 107mEq/L (97-108) Carbon Dioxide Level 26mmol/L (18-29) Blood Urea Nitrogen 24mg/dL (8-27) Creatinine 0.80mg/dL (0.57-1.00) Estimat Glomerular Filtration Rate 98mL/min (>59) Glucose Level 102mg/dL (60-99) Calcium Level 8.1mg/dL (8.5-10.1) Magnesium Level 1.8mg/dL (1.6-2.6) Discharge Medications Discharge Medications Lisinopril (Lisinopril) 40 Mg Tablet 2 TAB PO DAILY (Reported) Omeprazole (Omeprazole) 20 Mg Capsule.dr 20 MG PO DAILY (Reported) Simvastatin (Simvastatin) 10 Mg Tablet 10 MG PO HS (Reported) As needed Ondansetron (Ondansetron) 8 Mg Tablet 8 MG PO Q8 PRN PRN For Nausea (Reported) Additional med instructions Resume home medications as before Followup Plan Disposition: Home with Follow-up plan 1. Followup with primary care provider in 3-7 days 2. Followup with your oncologist on Tuesday as previously scheduled. Discharge Diet: Low fat, Low Sodium, Heart Healthy, Diabetic Discharge Activity: No restrictions Patient Instructions Seek immediate medical attention if any new or worsening signs or symptoms occur. Follow-up Provider: Lisa Vargas PA-C Time spent 35 min copies to: Lisa Vargas PA-C, [place] Aug 23, 2016 15:12
--- NOTE | 2016-08-27 10:08 | PATH ---
SURGICAL PATHOLOGY Attending Physician:Mariano Chavez MD CASE STATUS: Signed Out PATIENT NAME: Alejandra Arriaga PID: [id number] : 1935 DATE COLLECTED:08/20/2016 00:00 SPECIMEN: Pleural Fluid CLINICAL HISTORY: Pleural Fluid ICD-10 code not given FINAL DIAGNOSIS: PLEURAL FLUID CYTOLOGY SPECIMEN (CELL BLOCK, THINPREP, AND CYTOSPIN): NEGATIVE FOR MALIGNANT CELLS. CELLS PRESENT INCLUDE INFLAMMATORY CELLS AND MESOTHELIAL CELLS. DEGENERATIVE CHANGES LIMIT EVALUATION. ICD10 J90 GROSS DESCRIPTION: Received fresh on 08/23/2016 is approximately 55 cc of clear yellow fluid. Prepared are one cell block, one ThinPrep and one Cytospin slides. Vo ICD-9 CODES: CPT CODES: 1: 15461, 36650, 53324 Electronically Signed Out Michael Vaz MD [facility] Pathology [facility] [address], [place] [address] Technical component performed at [facility], [facility] [address], [place], [address]
== END 2016-08-23 15:00 | disposition home health service (06) | DRG 186 ==
LOC: SED 17:33 → MPC 22:11
PROVIDERS: ADMIT Hospitalist; ATTEND Hospitalist
PROC: 30233N1 Transfusion of Nonautologous Red Blood Cells into Peripheral Vein, Percutaneous Approach (ICD-10-PCS; 2016-08-19)
PROC: 0W993ZX Drainage of Right Pleural Cavity, Percutaneous Approach, Diagnostic (ICD-10-PCS; principal; 2016-08-20)
PROC: 3E040RZ Introduction of Antiarrhythmic into Central Vein, Open Approach (ICD-10-PCS; 2016-08-22)
DX: J90 Pleural effusion, not elsewhere classified (principal); J96.00 Acute respiratory failure, unspecified whether with hypoxia or hypercapnia; C56.9 Malignant neoplasm of unspecified ovary; E78.5 Hyperlipidemia, unspecified; K21.9 Gastro-esophageal reflux disease without esophagitis; I25.10 Atherosclerotic heart disease of native coronary artery without angina pectoris; I48.91 Unspecified atrial fibrillation; G51.0 Bell's palsy; I95.1 Orthostatic hypotension; E86.0 Dehydration; E11.65 Type 2 diabetes mellitus with hyperglycemia